=== PATIENT | male | born 1990 | race Caucasian/White ===

== ENCOUNTER 2022-03-28 14:46 | Emergency (ER) | payer SELFPAY ==
[~2022-03-28] VITALS: Ht 177.8 cm; Wt 77.1 kg
[2022-03-28 14:48] VITALS: BP_SYST 125
--- NOTE | 2022-03-28 15:00 | NUR ---
Patient to ER bed 3 to gown for evaluation. Side rails up.
--- NOTE | 2022-03-28 15:03 | NUR ---
ER Dr. Valentino at bedside examining patient.
--- NOTE | 2022-03-28 15:30 | NUR ---
Received patient in room 3. Assessed patient and during discussion, patient rambled in barely associated statements. 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 His co workers brought him to the hospital because he was stubling and rabling at work. Patient indicated he didn't need anything at this time.
[2022-03-28 16:08] LABS: BASOPHILS % (AUTO) 0.5 % (0.0-2.0); EOSINOPHILS % (AUTO) 0.8 % (0.0-4.0); HEMATOCRIT 42.9 % (36-54); HEMOGLOBIN 15.3 g/dL (14.0-18.0); LYMPHOCYTES # (AUTO) 1.4 K/uL (1.0-5.5); LYMPHOCYTES % (AUTO) 30.7 % (20.5-51.5); MEAN CORPUSCULAR HEMOGLOBIN 33 pg (27-31); MEAN CORPUSCULAR HGB CONC 36 % (32-36); MEAN CORPUSCULAR VOLUME 92 fL (79.0-98.0); MONOCYTES # (AUTO) 0.5 K/uL (0.0-1.0); MONOCYTES % (AUTO) 11.2 % (1.7-9.3); NEUTROPHILS # (AUTO) 2.6 K/uL (1.8-7.7); NEUTROPHILS % (AUTO) 56.8 % (40.0-70.0); PLATELET COUNT (AUTO) 243 K/uL (130-430); RED BLOOD CELL COUNT(AUTO) 4.69 MIL/uL (4.2-6.2); RED CELL DISTRIBUTION WIDTH 12.6 % (9.0-15.0); WHITE BLOOD COUNT (AUTO) 4.6 K/uL (4.8-10.8)
[2022-03-28 16:28] LABS: ANION GAP 5 (5-15); CALCIUM 9.1 mg/dL (8.4-11.0); CHLORIDE 100 mmol/L (98-107); CREATININE 1.27 mg/dL (0.55-1.30); GLUCOSE 91 mg/dL (70-99); POTASSIUM 3.8 mmol/L (3.5-5.1); SODIUM SERUM 139 mmol/L (136-145); UREA NITROGEN, BLOOD 24 mg/dL (8-21)
[2022-03-28 16:33] LABS: GFR AFRICAN AMERICAN 86 mL/min (>90)
[2022-03-28 16:40] LABS: ALANINE AMINOTRANSFERASE 29 U/L (12-78); ALBUMIN 3.8 g/dL (3.4-4.8); ASPARTATE AMINOTRANSFERASE 26 U/L (10-37)
[2022-03-28 16:45] LABS: ACETAMINOPHEN < 1 ug/mL (1-30); C-REACTIVE PROTEIN QUANT < 0.2 mg/dL (0-0.5)
[2022-03-28] MEDS ORDERED: NACL 0.9% 2,000 ML IV ONE (16:45)
[2022-03-28 16:46] LABS: ALCOHOL, BLOOD < 3 mg/dL (<10)
--- NOTE | 2022-03-28 17:00 | NUR ---
Returned to check on patient and patient was snoring, into a deep sleep. IV started and patient advised again to use urinal to give a sample as sopon as he can. 1L fluid bolus began at this time.
--- NOTE | 2022-03-28 17:55 | NUR ---
Urine: Dark orange, clear, sent to lab.
[2022-03-28 19:17] LABS: BARBITURATE, URINE NEGATIVE (NEG <=200); BENZODIAZEPINE, URINE POSITIVE (NEG <=150); CANNABINOID, URINE NEGATIVE (NEG <=50); METHAMPHETAMINES SCREEN,URINE NEGATIVE (NEG <=500); OPIATE, URINE NEGATIVE (NEG <=100); PHENCYCLIDINE SCREEN,URINE NEGATIVE (NEG <=25); UR TRICYCLIC ANTIDEPRESSANTS NEGATIVE (NEG <=300); URINE AMPHETAMINE NEGATIVE (NEG <=500); URINE METHADONE NEGATIVE (NEG <=200); URINE OXYCODONE SCREEN NEGATIVE (NEG <=100); URINE PROPOXYPHENE SCREEN NEGATIVE (NEG <=300)
[2022-03-28 19:18] LABS: COCAINE, URINE POSITIVE (NEG <=150)
[2022-03-28 19:32] LABS: ACETONE, SERUM NEGATIVE (NEGATIVE)
[2022-03-28 19:33] VITALS: BP_SYST 120
--- NOTE | 2022-03-28 19:35 | NUR ---
Patient given written and verbal discharge instructions and verbalizes understanding. ER MD MEHTA discussed with patient the results and treatment provided. Patient in stable condition. ID arm band removed. IV catheter removed intact and dressing applied, no active bleeding. Patient educated on pain management and to follow up with PMD. Pain Scale 0/10. Opportunity for questions provided and answered.
--- NOTE | 2022-04-02 06:42 | NUR ---
ADDENDUM Nacl 0.9% 2000ml start time 17:49 end time 19:49
== END 2022-03-28 19:33 | disposition home or self-care (01) ==
LOC: SED 14:46
DX: F19.10 Other psychoactive substance abuse, uncomplicated (principal); R07.9 Chest pain, unspecified; R41.0 Disorientation, unspecified; Z79.899 Other long term (current) drug therapy
CPT/HCPCS: 99285; 96360; 70450; 71045; 96361; 80307; 80053; 82009; 82140; 85025; 86140; 84484; 36415; 93005; 76376; 83605; G0482; J7030; G0480; G0481